=== PATIENT | male | born 1940 | race Caucasian/White ===

== ENCOUNTER 2021-01-26 07:04 | Emergency (ER) | payer OTHER ==
[2021-01-26 07:36] VITALS: TEMP 98.1; BMI 28.0
[2021-01-26 09:25] LABS: EPI CELLS 1 /uL (0-25.1); HYALINE CASTS 7 /uL (0-3.1); URINE APPEARANCE TURBID; URINE BACTERIA >9,000 /uL (0-1359); URINE BILIRUBIN NEGATIVE (NEGATIVE); URINE COLOR YELLOW; URINE GLUCOSE (UA) NEGATIVE (NEGATIVE); URINE KETONE NEGATIVE (NEGATIVE); URINE LEUK ESTERASE 3+ (NEGATIVE); URINE NITRITE NEGATIVE (NEGATIVE); URINE PROTEIN 2+ (NEGATIVE); URINE WBC 12841 /uL (0-25.8)
[2021-01-26 09:37] LABS: URINE RBC 432.5 /uL (0-23.9)
[2021-01-26] MEDS ORDERED: CEPHALEXIN MONOHYDRATE 500 MG CAPSULE (UD) PO ONE (10:16)
[2021-01-26] MEDS ORDERED: CEPHALEXIN MONOHYDRATE 500 MG CAPSULE (UD) ONE (10:19)
[2021-01-26 10:26] LABS: YEAST NON SEEN (NEGATIVE)
[2021-01-26 10:43] VITALS: BP 111/58; PULSE 85
== END 2021-01-26 10:44 | disposition home or self-care (01) ==
LOC: JER 07:04
DX: R33.9 Retention of urine, unspecified (principal); T83.091A Other mechanical complication of indwelling urethral catheter, initial encounter
CPT/HCPCS: 81003; 87086; 87186; 99283-25